=== PATIENT | male | born 1990 | race Caucasian/White ===

== ENCOUNTER 2016-07-23 21:11 | Emergency (ER) | payer SELFPAY ==
[~2016-07-23] VITALS: Ht 162.6 cm; Wt 57.6 kg
[2016-07-23 21:25] VITALS: Ht 162.6 cm; Wt 57.6 kg
[2016-07-23] MEDS ORDERED: ALPR0.25 PO (23:13)
[2016-07-23 23:30] VITALS: BP 110/53; PULSE 70; RESP 16
--- NOTE | 2016-07-25 17:00 | ERD ---
ER Documentation Chief Complaint Date/Time DATE: 07/25/16 TIME: 16:56 Chief Complaint weakness/shortness of breath/body aches x 1 day. HPI This patient is a 25-year-old male with no significant medical history presenting to the emergency department for one episode of feeling lightheaded earlier today while he was at work. 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 He states he felt his whole body go numb including his hands and fingers. He felt cramping in his fingers. He felt slightly short of breath. The patient drinks [employer] red drinks regularly. The patient has had similar symptoms in the past. The patient has never been diagnosed with anxiety. The patient states he is feeling much improved now. There are no other signs, symptoms, or alleviating or exacerbating factors to report at this time. ROS All systems reviewed and are negative except as per history of present illness. Medications Home Meds Active Scripts Alprazolam* (Xanax*) 0.25 Mg Tablet, 0.25 MG PO Q8H Y for ANXIETY, #10 TAB Prov:FANI SAXENA PA-C 07/23/16 Allergies Allergies: Coded Allergies: No Known Drug Allergies (Verified Allergy, Unknown, 07/23/16) PMhx/Soc Medical and Surgical Hx: pt denies Medical Hx, pt denies Surgical Hx History of Surgery: No Hx Alcohol Use: No Hx Substance Use: No Hx Tobacco Use: No FmHx Noncontributory for chief complaint Physical Exam Vitals Vital Signs Date Time Temp Pulse Resp B/P Pulse Ox O2 Delivery O2 Flow Rate FiO2 07/23/16 23:30 70 16 110/53 100 Room Air 07/23/16 21:25 98.8 92 21 143/81 98 Physical Exam INITIAL VITAL SIGNS: Reviewed by me. GENERAL: Alert and interactive. No acute distress. HEAD: Head is normocephalic and atraumatic. EYES: EOMI. No scleral icterus. No conjunctival injection. ENT: Moist mucosa. NECK: Supple. Full range of motion. RESPIRATORY: Normal respiratory effort. Clear breath sounds bilaterally. No wheezing, rales, or rhonchi. CV: Regular rate and rhythm. Normal S1 S2. No S3 or S4. No murmurs. ABDOMEN: Soft, non-distended, non-tender. No guarding. No rebound. No masses. EXTREMITIES: No deformity. SKIN: Warm and dry. NEUROLOGIC: Alert and oriented x 4. Speech is normal. Moves all extremities equally. No motor or sensory deficits noted. Results 24 hrs Laboratory Tests Test 07/23/16 22:43 Bedside Glucose 102mg/dL Procedures/MDM 25-year-old male presents secondary to complaints of anxiety. EKG: Interpreted by ED physician Rate/Rhythm: Normal sinus rhythm with a rate of 64 bpm QRS, ST, T-waves: No changes consistent w/ acute ischemia Impression: No evidence of ischemia or arrhythmia Given the history and physical examination I believe the patient's symptoms are secondary to anxiety reaction. At this time I have very low suspicion for any coronary ischemia, pneumothorax, or other symptoms. The patient's O2 saturation is 98% on room air. Accu-Chek in the department was 102. The patient and his mother who is also present understand the diagnosis and treatment plan. The patient was advised to return to the department immediately with any new or worsening symptoms and he understands this information. All questions and concerns were addressed and the patient was hemodynamically stable prior to discharge. Departure Diagnosis: Primary Impression: Anxiety reaction Condition: Fair Patient Instructions: Your Body's Response to Anxiety, Anxiety Reaction Additional Instructions: No mas mejor en 2-3 dubon, regresar. Mas peor en 24 horas, regresear rapidamente. Ir a doctor primario in 5-7 dubon. Usar instrucciones cuando rodríguez medicamento. FANI SAXENA PA-C Jul 25, 2016 17:00
== END 2016-07-23 23:31 | disposition home or self-care (01) ==
LOC: FTE 21:11
DX: F41.1 Generalized anxiety disorder (principal)
CPT/HCPCS: 82962; 93005